=== PATIENT | female | born 1975 | race Caucasian/White ===

== ENCOUNTER → 2016-09-03 | Outpatient (CLI) | payer BC ==
[~2016-09-03] MED LIST: ALBU1AER9 INH; DICY10CA12 PO; DOXY100C2 PO; EPP3/2 IM; FEXO1TAB46 PO; HYDR-389 PO; HYOS0.1271 SL; MONT1TAB5 PO; ONDA4TAB7 SL; ULT/50 PO
== END | disposition home or self-care (01) ==
LOC: C.PAPS 15:39
PROVIDERS: ATTEND Obstetrics & Gynecology
DX: Z01.419 Encounter for gynecological examination (general) (routine) without abnormal findings (principal)

== ENCOUNTER 2017-04-05 15:35 | Emergency (ER) | payer BC ==
[~2017-04-05] VITALS: Ht 170.2 cm; Wt 62.8 kg
[2017-04-05 15:41] VITALS: TEMP 36.8; Ht 170.2 cm; Wt 62.8 kg
[2017-04-05] MEDS ORDERED: ALBUT/IPRATROP 3MG/0.5MG NEB 3 ML VIAL INH STA (15:57)
[2017-04-05 16:45] LABS: POINT OF CARE TROPONIN I < 0.030 ng/ml (0-0.045)
[2017-04-05 16:48] LABS: PROTHROMBIN TIME (PATIENT) 10.6 SECONDS (9.0-12.0)
[2017-04-05 16:51] LABS: BUN/CREATININE RATIO 21.2 (10-20); CALCIUM 8.5 mg/dl (8.5-10.1); CREATININE 0.74 mg/dl (0.60-1.20); POTASSIUM 3.5 mmol/L (3.5-5.1)
--- NOTE | 2017-04-05 17:18 | DIAGNOSTIC IMAGING REPORT ---
CHEST 2 VIEWS ROUTINE HISTORY: Atypical chest pain. COMPARISON: Chest 06/03/2014. FINDINGS: The lungs are clear. Cardiac silhouette is normal in size. No pleural effusions. No pneumothorax. IMPRESSION: No acute process. Electronically signed by: Donavan Bartlett M.D. 04/05/2017 5:16 PM Dictated Date/Time: 04/05/2017 5:15 PM
[2017-04-05 17:20] LABS: BASO % 0.5 %; BASO ABS # 0.03 K/uL (0-0.2); COMPLETE YES; EOS % 2.5 %; HEMATOCRIT 38.4 % (37-47); IG% 0.2 %; LYMPH % 26.5 %; LYMPH ABS # 1.61 K/uL (1.2-3.4); MEAN CELL VOLUME 87.9 fL (80-100); MEAN CORPUSCULAR HEMOGLOBIN 30.7 pg (25-34); MEAN CORPUSCULAR HGB CONC 34.9 g/dl (32-36); MEAN PLATELET VOLUME 9.6 fL (7.4-10.4); MONO % 11.5 %; NEUT % 58.8 %; PLATELET COUNT 192 K/uL (130-400); RED BLOOD COUNT 4.37 M/uL (4.2-5.4); WHITE BLOOD COUNT 6.08 K/uL (4.8-10.8)
[2017-04-05 17:49] LABS: THYROID STIMULATING HORMONE 3.16 uIu/ml (0.300-4.500)
[2017-04-05 17:56] VITALS: BP 124/76; PULSE 85; O2SAT 100
--- NOTE | 2017-04-05 19:00 | EMERGENCY ROOM VISIT NOTE ---
History Report prepared by Shirley: Jamarcus Guillermo Under the Supervision of: Dr. Navarro Mcknight M.D. First contact with patient: 15:47 Chief Complaint: SHORTNESS OF BREATH Stated Complaint: TIGHTNESS IN CHEST, SOB Nursing Triage Summary: pt reports " I have a hx of seasonal allergies , while at home last night , cough, sob, chest tightness" I used benedryl with relief, today felt fine , then all of these sx started again today History of Present Illness The patient is a 41 year old female who presents to the Emergency Room with complaints of waxing and waning shortness of breath that started last night. She says that she had been indoors for a couple hours last night, and then started having tightness in her chest, with a racing heartbeat and shortness of breath. The patient states that she also was sneezing and coughing, with swelling and burning in her face. She says that she has been dealing with strong seasonal allergies for the past few weeks, and has been taking Maureen everyday for the past 2 weeks, and Hydroxyzine as needed. The patient says that she took she took one Hydroxyzine when the symptoms came on, and then took another one a little bit afterward. She notes that there was a crack in her window where she was last night. The patient says that she then fell asleep, and woke up feeling okay today, but as the day has progressed, she started having the symptoms again, and has kept getting worse. She adds that she has been having pressure in her face as well. The patient says that she did not take her inhaler, which she has for only in rescue situations. She denies any pain or swelling to her legs. The patient notes that she was hospitalized around 4 months ago after waking up with excruciating chest pain. She was unable to catch her breath as well. The patient stayed in [facility] for a couple days, and had elevated lipase levels, and was told that the source of her chest pain was due to an aggravation in a part of her small intestine. Her subsequent extensive testing came back fairly normal however. She notes that she had a couple drinks the night before the chest pain came on in November. The patient says that while this current chest tightness is not the same type of pain as 4 months ago, both episodes of chest pain are stemming from the same area. Currently, she says that she is still having chest tightness, shortness of breath, and a racing heartbeat, albeit the symptoms are more mild that they have been. She denies any recent long car trips or immobilization. She notes no family history of clots in her legs or lungs, nor any family history of early heart disease. She says that she smoke cigarettes around once per week. The patient is not on control. She says that her last period was a few weeks ago, but she notes some "weird hormone things" happening since she was hospitalized 4 months ago. She says that her periods have not been late, but there have been some irregularities. She denies any chance of . The patient notes that she does not have asthma, but gets asthma symptoms with her seasonal allergies. Source of History: patient Onset: Last night Position: other (global - shortness of breath) Quality: other (shortness of breath) Timing: waxes/wanes Modifying Factors (Relieving): other (hydroxyzine) Associated Symptoms: + cough, + chest pain (tightness) Note: Associated symptoms: Sneezing, swelling and burning in face. Racing heartbeat. Denies leg swelling or leg pain. Review of Systems See HPI for pertinent positives & negatives. A total of 10 systems reviewed and were otherwise negative. Past Medical & Surgical Medical Problems: (1) Abn Del Fet Ht Rt/Rhythm,W Or W/O Mention Of Antepartum Cond (2) Elevated lipase (3) Seasonal allergies (4) Stricture Of Cervix Family History Cancer Diabetes mellitus Hypertension Lung disease Social History Smoking Status: Former Smoker Alcohol Use: occasionally Drug Use: none Marital Status: Housing Status: lives with family Occupation Status: employed Current/Historical Medications Scheduled Hydroxyzine Hcl (Atarax), 10 MG PO NEEDED Scheduled PRN Fexofenadine Hcl (Maureen), 180 MG PO DAILY PRN for AL Allergies Coded Allergies: Latex1 -Allergic Contact Dermititis (Verified Allergy, Unknown, rash, ) Physical Exam Vital Signs Date Time Temp Pulse Resp B/P (MAP) Pulse Ox O2 Delivery O2 Flow Rate FiO2 04/05/17 17:56 85 20 124/76 100 04/05/17 16:44 85 20 127/68 100 Room Air 04/05/17 15:41 36.8 84 20 138/75 99 Room Air Physical Exam Constitutional: Vital signs reviewed. Eyes: Pupils are equal round reactive to light. Conjunctiva are noninjected. ENT: Pharynx is clear without erythema or exudate. Mucous membranes are moist. Neck supple without meningeal signs. TM's clear bilaterally. No sinus tenderness. Light inflammation of the nasal turbinates bilaterally. Respiratory: Clear to auscultation bilaterally. Breath sounds are equal bilaterally. No wheezing or stridor. Cardiovascular: Regular rate and rhythm. No rubs or gallops. GI: Soft, nondistended and nontender. Bowel sounds are present. Musculoskeletal: No peripheral edema. No lower extremity tenderness. Integumentary: No cyanosis. Neurological: The patient is awake and alert. No focal deficits. Psychiatric: Normal affect. Medical Decision & Procedures ER Provider Diagnostic Interpretation: X-ray results as stated below per interpretation by me and the radiologist: CHEST 2 VIEWS ROUTINE HISTORY: Atypical chest pain. COMPARISON: Chest 06/03/2014. FINDINGS: The lungs are clear. Cardiac silhouette is normal in size. No pleural effusions. No pneumothorax. IMPRESSION: No acute process. Electronically signed by: Donavan Bartlett M.D. 04/05/2017 5:16 PM Dictated Date/Time: 04/05/2017 5:15 PM Laboratory Results 04/05/17 16:19 Red Blood Count 4.37, Mean Corpuscular Volume 87.9, Mean Corpuscular Hemoglobin 30.7, Mean Corpuscular Hemoglobin Concent 34.9, Mean Platelet Volume 9.6, Neutrophils (%) (Auto) 58.8, Lymphocytes (%) (Auto) 26.5, Monocytes (%) (Auto) 11.5, Eosinophils (%) (Auto) 2.5, Basophils (%) (Auto) 0.5, Neutrophils # (Auto ) 3.58, Lymphocytes # (Auto) 1.61, Monocytes # (Auto) 0.70, Eosinophils # (Auto ) 0.15, Basophils # (Auto) 0.03 04/05/17 16:19 Test 04/05/17 16:04 04/05/17 16:19 04/05/17 16:27 White Blood Count 6.08 K/uL (4.8-10.8) Red Blood Count 4.37 M/uL (4.2-5.4) Hemoglobin 13.4 g/dL (12.0-16.0) Hematocrit 38.4 % (37-47) Mean Corpuscular Volume 87.9 fL (80-100) Mean Corpuscular Hemoglobin 30.7 pg (25-34) Mean Corpuscular Hemoglobin Concent 34.9 g/dl (32-36) Platelet Count 192 K/uL (130-400) Mean Platelet Volume 9.6 fL (7.4-10.4) Neutrophils (%) (Auto) 58.8 % Lymphocytes (%) (Auto) 26.5 % Monocytes (%) (Auto) 11.5 % Eosinophils (%) (Auto) 2.5 % Basophils (%) (Auto) 0.5 % Neutrophils # (Auto) 3.58 K/uL (1.4-6.5) Lymphocytes # (Auto) 1.61 K/uL (1.2-3.4) Monocytes # (Auto) 0.70 K/uL (0.11-0.59) Eosinophils # (Auto) 0.15 K/uL (0-0.5) Basophils # (Auto) 0.03 K/uL (0-0.2) RDW Standard Deviation 39.3 fL (36.4-46.3) RDW Coefficient of Variation 12.3 % (11.5-14.5) Immature Granulocyte % (Auto) 0.2 % Immature Granulocyte # (Auto) 0.01 K/uL (0.00-0.02) Prothrombin Time 10.6 SECONDS (9.0-12.0) Prothromb Time International Ratio 1.0 (0.9-1.1) Activated Partial Thromboplast Time 25.1 SECONDS (21.0-31.0) Partial Thromboplastin Ratio 1.0 Anion Gap 5.0 mmol/L (3-11) Est Creatinine Clear Calc Drug Dose 98.3 ml/min Estimated GFR () 117.5 Estimated GFR (Non- 101.3 BUN/Creatinine Ratio 21.2 (10-20) Calcium Level 8.5 mg/dl (8.5-10.1) Total Bilirubin 0.7 mg/dl (0.2-1) Direct Bilirubin 0.1 mg/dl (0-0.2) Aspartate Amino Transf (AST/SGOT) 14 U/L (15-37) Alanine Aminotransferase (ALT/SGPT) 17 U/L (12-78) Alkaline Phosphatase 52 U/L (45-117) Total Protein 7.2 gm/dl (6.4-8.2) Albumin 3.8 gm/dl (3.4-5.0) Lipase 368 U/L (73-393) Thyroid Stimulating Hormone (TSH) 3.160 uIu/ml (0.300-4.500) Free Thyroxine 0.81 ng/dl (0.80-1.60) Bedside D-Dimer 185 ng/mlFEU (0-450) Bedside Troponin I < 0.030 ng/ml (0-0.045) Laboratory results as reviewed by me. Medications Administered Medications (Trade) Dose Ordered Sig/Ping Route Start Time Stop Time Status Last Admin Dose Admin Albuterol/ Ipratropium (Duoneb) 3 ml NOW STAT INH 04/05/17 15:57 04/05/17 15:59 DC 04/05/17 16:09 3 ML ECG Indication: chest pain Rate (beats per minute): 80 Rhythm: normal sinus Findings: no acute ischemic change, no ectopy ED Course 1549: The patient was evaluated in room C1B. A complete history and physical exam was performed. 1557: Ordered Duoneb 3 ml INH. 1715: I reevaluated the patient and she is feeling much better. Her heart rate is 88, and her pulse ox is 100% on room air. She has no wheezing on exam. I reviewed the test results with her. 1744: I reevaluated the patient and talked to her about her test results. Her TFT's are pending. Her primary care physician will follow up with the TFT's. The patient verbally expressed understanding and agreement with the treatment plan. The patient will be discharged. Medical Decision This is a 41-year-old female presents with chest pain and shortness of breath. Differential diagnosis includes seasonal allergies, asthma exacerbation, pulmonary embolism, pneumonia, bronchitis, IA, pleurisy. I did perform a limited focused review of portions of the patient's old chart on the electronic medical record. The patient has had no recent pertinent visits to this hospital. I did evaluate the patient as noted above. The patient has a history of allergy -induced asthma. She has had significant allergy symptoms since yesterday and has developed trouble breathing with chest tightness. IV access was established. I did treat patient with a DuoNeb. I did order and personally review the patient's 12-lead EKG and chest x-ray as described above. There is no evidence of acute ischemia on her twelve-lead EKG. Her chest x-ray is unremarkable. I did order and review the patient's blood work as noted in the electronic medical record. D-dimer and troponin are negative.TFTs are unremarkable. On reassessment the patient is feeling much better after DuoNeb. I did recommend she continue using her albuterol MDI as needed and continue using her antihistamines. 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 She was discharged in good condition. Medication Reconcilliation Current Medication List: was personally reviewed by me Blood Pressure Screening Patient's blood pressure: Elevated blood pressure Blood pressure disposition: Elevated BP felt to be situational Impression Primary Impression: Acute dyspnea Additional Impressions: Allergic rhinitis Palpitations Scribe Attestation The scribe's documentation has been prepared under my direct and personally reviewed by me in its entirety. I confirm that the note above accurately reflects all work, treatment, procedures, and medical decision making performed by me. Departure Information Dispostion Home / Self-Care Referrals Ran Perkins M.D. (PCP) Patient Instructions ED Dyspnea Shortness of Breath, ED Palpitations, My [facility] Additional Instructions You have been examined and treated today on an emergency basis only. This is not a substitute for, or an effort to provide, complete comprehensive medical care. It is impossible to recognize and treat all injuries or illnesses in a single emergency department visit. It is therefore important that you follow up closely with your physician. Call as soon as possible for an appointment. Return for worsening symptoms or if you develop fever, vomiting, swelling to your throat or tongue or any other concerning symptoms. Problem Qualifiers Additional Impressions: Allergic rhinitis Chronicity: unspecified Allergic rhinitis trigger: unspecified Allergic rhinitis seasonality: unspecified seasonality Qualified Codes: J30.9 - Allergic rhinitis, unspecified
== END 2017-04-05 17:57 | disposition home or self-care (01) ==
LOC: C.EDB 15:36 → C.EDC 17:57
DX: R06.00 Dyspnea, unspecified (principal); J30.9 Allergic rhinitis, unspecified; R00.2 Palpitations; Z80.9 Family history of malignant neoplasm, unspecified; Z83.3 Family history of diabetes mellitus; Z82.49 Family history of ischemic heart disease and other diseases of the circulatory system; Z83.6 Family history of other diseases of the respiratory system; Z87.891 Personal history of nicotine dependence

== ENCOUNTER → 2017-11-11 | Outpatient (CLI) | payer BC ==
[~2017-11-11] MED LIST changes: -ALBU1AER9 INH; -DICY10CA12 PO; -DOXY100C2 PO; -EPP3/2 IM; -HYOS0.1271 SL; -MONT1TAB5 PO; -ONDA4TAB7 SL; -ULT/50 PO
== END | disposition home or self-care (01) ==
LOC: C.PAPS 15:17
PROVIDERS: ATTEND Obstetrics & Gynecology
DX: Z01.419 Encounter for gynecological examination (general) (routine) without abnormal findings (principal)

== ENCOUNTER → 2017-11-25 | Outpatient (CLI) | payer BC ==
[2017-11-25 13:01] LABS: FOLLICLE STIMULAT HORMONE 5.06 IU/L; LUTEINIZING HORMONE 1.7 IU/L; PROLACTIN 4.7 ng/mL
== END | disposition home or self-care (01) ==
LOC: C.LAB1850 11:24
PROVIDERS: ATTEND Obstetrics & Gynecology
DX: N92.5 Other specified irregular menstruation (principal); N92.0 Excessive and frequent menstruation with regular cycle

== ENCOUNTER → 2017-11-25 | Outpatient (CLI) | payer BC ==
--- NOTE | 2017-11-26 07:39 | MAMMOGRAPHY REPORT ---
BILATERAL FIRST EVER DIGITAL SCREENING MAMMOGRAM TOMOSYNTHESIS WITH CAD: 11/25/2017 CLINICAL HISTORY: Routine screening. Baseline exam. TECHNIQUE: Breast tomosynthesis in addition to standard 2D mammography was performed. Current study was also evaluated with a Computer Aided Detection (CAD) system. COMPARISON: No prior exams were available for comparison. BREAST COMPOSITION: The tissue of both breasts is extremely dense, which lowers the sensitivity of m ammography. FINDINGS: No suspicious mass, architectural distortion or cluster of microcalcifications is seen. IMPRESSION: ACR BI-RADS CATEGORY 1: NEGATIVE There is no mammographic evidence of malignancy. A 1 year screening mammogram is recommended. The pa tient will receive written notification of the results. Approximately 10% of breast cancers are not detected with mammography. A negative mammographic report should not delay biopsy if a clinically suggestive mass is present. Noelle prado/penrad:11/25/2017 12:00:12 Hand Chain Maker: Nataliia NIEVES(Radha)(M), [facility] letter sent: Normal 1/2 BI-RADS Code: ACR BI-RADS Category 1: Negative
== END | disposition home or self-care (01) ==
LOC: C.MAMM 11:04
PROVIDERS: ATTEND Obstetrics & Gynecology
DX: Z12.31 Encounter for screening mammogram for malignant neoplasm of breast (principal)